=== PATIENT | male | born 1995 | race Caucasian/White ===

== ENCOUNTER 2017-06-17 08:18 | Emergency (ER) | payer OTHER ==
[2017-06-17 08:33] VITALS: BP 125/66
--- NOTE | 2017-06-17 09:55 | UC ---
Throat Pain/Nasal Renzo HPI - HPI Summary HPI Summary: ONSET OF [place] SWELLING AND ST THIS MORNING. NO AIRWAY COMPROMISE, EAR PAIN, COUGH, FEVER, N/V/D. HAS SOME MILD CONGESION THAT PT THINKS IS ALLERGICALLY MEDIATED. - History of Current Complaint Chief Complaint: UCRespiratory Stated Complaint: SORE THROAT Time Seen by Provider: 06/17/17 09:31 Hx Obtained From: Patient, Family/Technical Support Analyst - MOM Onset/Duration: Gradual Onset, Lasting Hours, Still Present Severity: Mild Pain Intensity: 2 Pain Scale Used: 0-10 Numeric Cough: None Associated Signs & Symptoms: Negative: Wheezing, Hoarseness, Nasal Discharge, Fever - Allergies/Home Medications Allergies/Adverse Reactions: Allergies Allergy/AdvReac Type Severity Reaction Status Date / Time Peanut AdvReac Intermediate Abdominal Uncoded 06/17/17 08:30 Pain PMH/Surg Hx/FS Hx/Imm Hx Respiratory History: Asthma - Surgical History Surgical History: None - Family History Known Family History: Positive: Hypertension - Social History Alcohol Use: Weekly Substance Use Type: None Smoking Status (MU): Never Smoked Tobacco Review of Systems Constitutional: Negative ENT: Sore Throat, Nasal Discharge Respiratory: Negative Cardiovascular: Negative Gastrointestinal: Negative All Other Systems Reviewed And Are Negative: Yes Physical Exam Triage Information Reviewed: Yes Appearance: Well-Appearing, No Pain Distress, Well-Nourished Vital Signs: Initial Vital Signs Temp 98.8 F 06/17/17 08:30 Pulse 77 06/17/17 08:30 Resp 16 06/17/17 08:30 BP 125/66 06/17/17 08:30 Pulse Ox 97 06/17/17 08:30 Vital Signs Reviewed: Yes Eyes: Positive: Conjunctiva Clear ENT: Positive: Hearing grossly normal, Pharyngeal erythema, TMs normal, Other: - UVULAR EDEMA Neck: Positive: Supple, Nontender, No Lymphadenopathy Respiratory Exam: Normal Cardiovascular Exam: Normal Abdomen Description: Positive: Soft Musculoskeletal: Positive: No Edema Neurological: Positive: Alert Psychological: Positive: Age Appropriate Behavior Skin: Negative: rashes Throat Pain/Nasal Course/Dx - Differential Dx/Diagnosis Provider Diagnoses: UVULITIS Discharge - Discharge Plan Condition: Stable Disposition: HOME Prescriptions: predniSONE TAB* [Deltasone TAB*] 40 mg PO DAILY #10 tab Patient Education Materials: Uvulitis (ED) Referrals: Alverto Cruz MD [Primary Care Provider] - If Needed Additional Instructions: INFECTION (LIKELY VIRAL) VS. ALLERGY. HYDRATE, OTC IBUPROFEN NEEDED. TAKE OTC ANTIHISTAMINE DAILY (CLARITIN (LORATADINE), ZYRTEC (CETIRIZINE) OR GUZMAN ( FEXOFENADINE) IN THE MORNING TO COVER FOR ALLERGIC COMPONENT. PREDNISONE WILL HELP WITH INFLAMMATION AND WILL ALSO COMBAT ALLERGIC SYMPTOMS. NO INDICATION FOR ANTIBIOTICS AT PRESENT. GO TO ER WITHOUT FAIL IF YOU FEEL LIKE YOUR AIRWAY IS BECOMING INVOLVED AT ANY LEVEL.
== END 2017-06-17 10:08 | disposition home or self-care (01) ==
LOC: UCEAST 08:18
DX: K12.2 Cellulitis and abscess of mouth (principal)
CPT/HCPCS: 99212; G0463

== ENCOUNTER 2018-10-20 02:10 | Emergency (ER) | payer OTHER ==
[2018-10-20] MEDS ORDERED: Ketorolac INJ* 15 MG/ML 1 ML VIAL IV PUSH ONE (02:45)
[2018-10-20] MEDS ORDERED: diPHENhydraMINE PO* 50 MG PO ONE (02:45)
[2018-10-20] MEDS ORDERED: NS 0.9% 1000 ML** 1,000 ML IV ONE ×2 (02:45→02:47)
[2018-10-20] MEDS ORDERED: Metoclopramide IV* 5 MG/ML 2 ML VIAL IV SLOW PU ONE (02:45)
[2018-10-20] MEDS ORDERED: DICYCLOMINE HCL* 20 MG/2 ML VIAL IM ONE (02:47)
[2018-10-20 03:06] LABS: ABS Basophils 0 10^3/ul (0-0.2); ABS Eosinophils 0.4 10^3/ul (0-0.6); ABS Lymphocytes 1.8 10^3/ul (1.0-4.8); ABS Monocytes 0.8 10^3/ul (0-0.8); ABS Neutrophils 4.5 10^3/ul (1.5-7.7); ABS Nucleated RBC 0 10^3/ul; Eosinophil % 4.8 %; Hematocrit 47 % (42-52); Hemoglobin 15.7 g/dl (14.0-18.0); Lymphocyte % 24.1 %; Mean Corpuscular HGB Conc 33 g/dl (31-36); Mean Corpuscular Hemoglobin 30 pg (27-31); Mean Corpuscular Volume 92 fL (80-94); Mean Platelet Volume 10.7 fL (7.4-10.4); Nucleated Red Blood Cells % 0.1; Platelet Count 218 10^3/ul (150-450); Red Blood Count 5.15 10^6/ul (4.00-5.40); Red Cell Distribution Width 13 % (10.5-15); White Blood Count 7.5 10^3/ul (3.5-10.8)
[2018-10-20 03:18] LABS: Albumin 4.3 g/dL (3.2-5.2); Amylase 14 U/L (29-103); Anion Gap 10 mmol/L (2-11); CO2 Carbon Dioxide 21 mmol/L (22-32); Chloride 107 mmol/L (101-111); Potassium 4.2 mmol/L (3.5-5.0); Sodium 138 mmol/L (135-145)
[2018-10-20 03:24] LABS: ALT 55 U/L (7-52); AST 30 U/L (13-39); Albumin/Globulin Ratio 1.7 (1-3); Alkaline Phosphatase 59 U/L (34-104); BUN/Creatinine Ratio 11.6 (8-20); Blood Urea Nitrogen 10 mg/dL (6-24); C Reactive Protein < 1.00 mg/L (<8.01); EGFR African American 135.8 (>60); EGFR Non-African American 112.3 (>60); Globulin 2.5 g/dL (2-4); Glucose 103 mg/dL (70-100); Total Protein 6.8 g/dL (6.4-8.9)
--- NOTE | 2018-10-20 03:31 | ED ---
Abdominal Pain/Male - HPI Summary HPI Summary: This pt is a 22 y/o male presenting to [facility] c/o abd pain since 01:15 today. Pt reports he has had abd pain intermittently since 1 week ago. Today pt notes his abd pain woke him up at 01:15. Additionally states he has back pain. Denies vomiting, diarrhea, chest pain, SOB, fever. Denies any abd surgeries. - History of Current Complaint Chief Complaint: EDAbdPain Stated Complaint: STOMACH PAIN Time Seen by Provider: 10/20/18 02:34 Hx Obtained From: Patient Onset/Duration: Lasting Hours, Still Present Timing: Lasting Hours Severity Currently: Severe Pain Intensity: 9 Pain Scale Used: 0-10 Numeric Location: Diffuse Radiates: No Aggravating Factor(s): Nothing Alleviating Factor(s): Nothing Associated Signs And Symptoms: Positive: Back Pain. Negative: Fever, Chest Pain , Nausea, Vomiting, Diarrhea - Allergies/Home Medications Allergies/Adverse Reactions: Allergies Allergy/AdvReac Type Severity Reaction Status Date / Time amoxicillin Allergy Rash Verified 10/20/18 02:14 Peanut AdvReac Intermediate Abdominal Uncoded 10/20/18 02:14 Pain Home Medications: Home Medications NK [No Home Medications Reported] 10/20/18 [History Confirmed 10/20/18] PMH/Surg Hx/FS Hx/Imm Hx Cardiovascular History: Denies: Hx Hypertension Respiratory History: Reports: Hx Asthma Infectious Disease History: No Infectious Disease History: Denies: History Other Infectious Disease, Traveled Outside the [place] in Last 30 Days - Family History Known Family History: Positive: Hypertension - Social History Alcohol Use: Weekly Substance Use Type: Reports: None Smoking Status (MU): Never Smoked Tobacco Review of Systems Negative: Fever, Chills Negative: Chest Pain Negative: Shortness Of Breath Positive: Abdominal Pain. Negative: Vomiting, Diarrhea, Nausea Musculoskeletal: Other - POS: back pain All Other Systems Reviewed And Are Negative: Yes Physical Exam - Summary Physical Exam Summary: VITAL SIGNS: Reviewed. GENERAL: Patient is a morbidly obese male who is lying comfortable in the stretcher. Patient is not in any acute respiratory distress. HEAD AND FACE: No signs of trauma. No ecchymosis, hematomas or skull depressions. No sinus tenderness. EYES: PERRLA, EOMI x 2, No injected conjunctiva, no nystagmus. EARS: Hearing grossly intact. Ear canals and tympanic membranes are within normal limits. MOUTH: Oropharynx within normal limits. NECK: Supple, trachea is midline, no adenopathy, no JVD, no carotid bruit, no c- spine tenderness, neck with full ROM. CHEST: Symmetric, no tenderness at palpation LUNGS: Clear to auscultation bilaterally. No wheezing or crackles. CVS: Regular rate and rhythm, S1 and S2 present, no murmurs or gallops appreciated. ABDOMEN: Soft, non-tender. No signs of distention. No rebound no guarding, and no masses palpated. Bowel sounds are normal. EXTREMITIES: FROM in all major joints, no edema, no cyanosis or clubbing. NEURO: Alert and oriented x 3. No acute neurological deficits. Speech is normal and follows commands. SKIN: Dry and warm Triage Information Reviewed: Yes Vital Signs On Initial Exam: Initial Vitals Temp Pulse Resp BP Pulse Ox 99 F 91 22 158/90 97 10/20/18 02:11 10/20/18 02:11 10/20/18 02:11 10/20/18 02:11 10/20/18 02:11 Vital Signs Reviewed: Yes Diagnostics - Vital Signs Vital Signs Temp Pulse Resp BP Pulse Ox 10/20/18 02:11 99 F 91 22 158/90 97 - Laboratory Lab Results: Lab Results 10/20/18 10/20/18 Range/Units 02:56 02:56 WBC 7.5 (3.5-10.8) 10^3/ul RBC 5.15 (4.00-5.40) 10^6/ul Hgb 15.7 (14.0-18.0) g/dl Hct 47 (42-52) % MCV 92 (80-94) fL MCH 30 (27-31) pg MCHC 33 (31-36) g/dl RDW 13 (10.5-15) % Plt Count 218 (150-450) 10^3/ul MPV 10.7 H (7.4-10.4) fL Neut % (Auto) 60.1 % Lymph % (Auto) 24.1 % Dunn % (Auto) 10.6 % Eos % (Auto) 4.8 % Baso % (Auto) 0.4 % Absolute Neuts (auto) 4.5 (1.5-7.7) 10^3/ul Absolute Lymphs (auto) 1.8 (1.0-4.8) 10^3/ul Absolute Monos (auto) 0.8 (0-0.8) 10^3/ul Absolute Eos (auto) 0.4 (0-0.6) 10^3/ul Absolute Basos (auto) 0 (0-0.2) 10^3/ul Absolute Nucleated RBC 0 10^3/ul Nucleated RBC % 0.1 Sodium 138 (135-145) mmol/L Potassium 4.2 (3.5-5.0) mmol/L Chloride 107 (101-111) mmol/L Carbon Dioxide 21 L (22-32) mmol/L Anion Gap 10 (2-11) mmol/L BUN 10 (6-24) mg/dL Creatinine 0.86 (0.67-1.17) mg/dL Est GFR ( Amer) 135.8 (>60) Est GFR (Non-Af Amer) 112.3 (>60) BUN/Creatinine Ratio 11.6 (8-20) Glucose 103 H (70-100) mg/dL Calcium 10.0 (8.6-10.3) mg/dL Total Bilirubin 0.70 (0.2-1.0) mg/dL AST 30 (13-39) U/L ALT 55 H (7-52) U/L Alkaline Phosphatase 59 (34-104) U/L C-Reactive Protein < 1.00 (<8.01) mg/L Total Protein 6.8 (6.4-8.9) g/dL Albumin 4.3 (3.2-5.2) g/dL Globulin 2.5 (2-4) g/dL Albumin/Globulin Ratio 1.7 (1-3) Amylase 14 L (29-103) U/L Lipase < 10 L (11.0-82.0) U/L Result Diagrams: 10/20/18 02:56 10/20/18 02:56 Lab Statement: Any lab studies that have been ordered have been reviewed, and results considered in the medical decision making process. - Radiology Abdomen XR Radiology Interpretation Completed By: ED Physician Summary of Radiographic Findings: Negative abd XR. Pending official radiology report. Re-Evaluation - Re-Evaluation First Eval Re-Evaluation Time: 05:30 Comment: I discussed the lab and XR results with the pt. He will be discharged home. Abdominal Pain Fem Course/Dx - Course Assessment/Plan: Pt is a 22 y/o male who presents with abd pain since 01:15 today. Pt reports he has had abd pain intermittently since 1 week ago. Today pt notes his abd pain woke him up at 01:15. Additionally states he has back pain. Blood work, urinalysis, Abd XR was obtained. Abd XR is negative. In the ED course the pt was given IV fluids, Bentyl, morphine. Pt has been having this abd pain for the past 1 week. I discussed all the lab and XR results with the pt and mother. Pt has normal labs. Therefore pt likely has irritable bowel syndrome. Pt will be discharged home with follow up from GI. He is instructed to return to the ED for any new or worsening symptoms. 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 RETURN TO EMERGENCY DEPARTMENT FOR ANY NEW OR WORSENING SYMPTOMS. - Attestation Statements Document Initiated by Scribe: Yes Documenting Scribe: Aura Bullard Provider For Whom Madeline is Documenting (Include Credential): Robbie Cardona MD Scribe Attestation: Aura Terrell, scribed for Robbie Cardona MD on 10/20/18 at 0541. Status of Scribe Document: Ready
[2018-10-20 03:55] LABS: Urine Appearance Clear; Urine Bilirubin Negative (Negative); Urine Blood Negative (Negative); Urine Color Yellow; Urine Glucose Negative (Negative); Urine Ketones Negative (Negative); Urine Nitrite Negative (Negative); Urine Protein Negative (Negative); Urine Specific Gravity 1.019 (1.010-1.030); Urine Urobilinogen Negative (Negative)
[2018-10-20] MEDS ORDERED: Morphine VIAL* 10 MG/ML 1 ML VIAL IV ONE (04:29)
[2018-10-20] MEDS ORDERED: Morphine VIAL* 10 MG/ML 1 ML VIAL ONE (04:31)
[2018-10-20 06:01] VITALS: BP 148/62
== END 2018-10-20 06:00 | disposition home or self-care (01) ==
LOC: ED 02:10
DX: R10.84 Generalized abdominal pain (principal); M54.9 Dorsalgia, unspecified; Z88.0 Allergy status to penicillin; Z91.010 Allergy to peanuts
CPT/HCPCS: 36415; 74019; 80053; 81003; 82150; 83690; 85025; 86140; 96372; 96374; 99282; J0500; J2270